=== PATIENT | male | born 1975 | race Caucasian/White ===

== ENCOUNTER 2018-07-24 00:47 | Emergency (ER) | payer BC ==
[~2018-07-24] VITALS: Wt 110.0 kg
[2018-07-24 00:57] VITALS: BP 135/82; PULSE 95; RESP 19
--- NOTE | 2018-07-24 03:53 | ERD ---
ER Documentation Chief Complaint Chief Complaint bib ra / pd for etoh and violent behavior at home, given 10 mg versed IM HPI Is a 42-year-old male brought in by [facility] for EtOH mild behavior at home. He was given Versed intramuscularly. Denies fevers chills nausea vomiting. Upon arrival patient is docile. Denies any other current complaints. Denies suicidal homicidal ideation ROS All systems reviewed and are negative except as per history of present illness. Allergies Allergies: Coded Allergies: No Known Allergy (Unverified , 07/24/18) PMhx/Soc Medical and Surgical Hx: Unable to obtain Hx Alcohol Use: Yes Hx Substance Use: No Hx Tobacco Use: Yes Smoking Status: Current every day smoker Physical Exam Vitals Vital Signs Date Temp Pulse Resp B/P (MAP) Pulse Ox O2 O2 Flow FiO2 Time Delivery Rate 07/24/18 98.6 95 19 135/82 100 Nasal 2.0 00:57 (99) Cannula 07/24/18 98.6 95 19 145/87 100 00:55 (106) Physical Exam Const: No acute distress Head: Atraumatic Eyes: Normal Conjunctiva ENT: Normal External Ears, Nose and Mouth. Neck: Full range of motion. No meningismus. Resp: Clear to auscultation bilaterally Cardio: Regular rate and rhythm, no murmurs Abd: Soft, non tender, non distended. Normal bowel sounds Skin: No petechiae or rashes Back: No midline or flank tenderness Ext: No cyanosis, or edema Neur: Awake and alert Psych: Normal Mood and Affect Procedures/MDM Medical decision making: This patient essentially for alcohol intoxication. He became somewhat combative while he was intoxicated. Patient has been left to sober but has been observed here in the ER and is stable for trial of outpatient management. He has been advised to stop drinking. Departure Diagnosis: Primary Impression: Alcoholic intoxication Complication of substance-induced condition: uncomplicated Qualified Codes: F10.920 - Alcohol use, unspecified with intoxication, uncomplicated Condition: Stable Patient Instructions: Alcohol Intoxication MILO IBARRA Jul 24, 2018 03:53
== END 2018-07-24 06:05 | disposition home or self-care (01) ==
LOC: E/R 00:47
DX: F10.920 Alcohol use, unspecified with intoxication, uncomplicated (principal); F17.210 Nicotine dependence, cigarettes, uncomplicated
CPT/HCPCS: 99282